=== PATIENT | female | born 1970 | race Caucasian/White ===

== ENCOUNTER → 2017-07-18 | Outpatient (CLI) | payer BC ==
[2017-07-18 09:55] LABS: BASOPHILS # (AUTO) 0.1 X10^3/uL (0.0-0.1); BASOPHILS % (AUTO) 1.1 % (0.2-1.0); EOSINOPHILS # (AUTO) 0.1 x10^3/uL (0.0-0.2); EOSINOPHILS % (AUTO) 1.2 % (0.9-2.9); HEMATOCRIT 36.1 % (36.0-47.0); HEMOGLOBIN 12.3 g/dL (12.0-16.0); LYMPHOCYTES # (AUTO) 1.7 X10^3/uL (1.3-2.9); LYMPHOCYTES % (AUTO) 24.4 % (21.0-51.0); MEAN CORPUSCULAR HEMOGLOBIN 26.3 pg (27.0-34.0); MEAN CORPUSCULAR HGB CONC 34.2 g/dL (33.0-35.0); MEAN PLATELET VOLUME 7.5 fL (7.4-11.0); MONOCYTES # (AUTO) 0.4 x10^3/uL (0.3-0.8); MONOCYTES % (AUTO) 5.6 % (0.0-13.0); NEUTROPHILS # (AUTO) 4.6 x10^3/uL (2.2-4.8); NEUTROPHILS % (AUTO) 67.7 % (42.0-75.0); PLATELET COUNT 299 X10^3/uL (150.0-450.0); RED BLOOD COUNT 4.69 X10^6/uL (3.5-5.4); RED CELL DISTRIBUTION WIDTH 15.1 % (11.6-16.5); WHITE BLOOD COUNT 6.8 X10^3/uL (3.6-10.0)
[2017-07-18 10:03] LABS: BILIRUBIN,URINE NEGATIVE (NEGATIVE); BLOOD/HEMOGLOBIN,URINE NEGATIVE (NEGATIVE); GLUCOSE, URINE NEGATIVE (NEGATIVE); KETONES,URINE 1+ (NEGATIVE); LEUKOCYTE ESTERASE ,URINE 1+ (NEGATIVE); NITRITES,URINE NEGATIVE (NEGATIVE); PROTEIN,URINE 1+ (NEGATIVE); UROBILINOGEN,URINE NORMAL (NORMAL)
[2017-07-18 10:15] LABS: ALANINE AMINOTRANSFERASE 23 Units/L (12-78); ALBUMIN 3.5 g/dL (3.4-5.0); ALKALINE PHOSPHATASE 77 Units/L (46-116); ASPARTATE AMINO TRANSFERASE 19 Units/L (15-37); BLOOD UREA NITROGEN 10 mg/dL (7-18); CALCIUM 8.4 mg/dL (8.5-10.1); CARBON DIOXIDE 31.3 mmol/L (21-32); CHLORIDE 103 mmol/L (98-107); CHOL/HDL RATIO 3.1 (0.0-5.0); CHOLESTEROL 192 mg/dL (0-200); CREATININE 0.67 mg/dL (0.55-1.02); FREE T4 (FREE THYROXINE) 1.04 ng/dL (0.76-1.46); GLUCOSE 86 mg/dL (65-99); HDL CHOLESTEROL 61 mg/dL (40-60); SODIUM 139 mmol/L (136-145); TOTAL PROTEIN 7.4 g/dL (6.4-8.2); TRIGLYCERIDES 68 mg/dL (0-150); TSH (3RD GENERATION) 1.278 uIU/mL (0.358-3.74); eGFR BLACK RACES > 60 (>60); eGFR NON BLACK RACES > 60 (>60)
[2017-07-18 10:27] LABS: APPEARANCE,URINE CLEAR (CLEAR); COLOR,URINE YELLOW (YELLOW)
[2017-07-18 10:31] LABS: AMORPHOUS SEDIMENT,UR 1+ /HPF (NEGATIVE); BACTERIA,URINE 1+ /HPF (NEGATIVE); MUCUS,URINE MODERATE /HPF (NEGATIVE); RBC,URINE RARE /HPF (NEGATIVE); SQUAMOUS EPITHELIAL CELL,UR MANY /HPF (NEGATIVE)
[2017-07-18 10:42] LABS: ERYTHROCYTE SEDIMENTATION RATE 19 MM/HOUR (0-20)
--- NOTE | 2017-07-18 10:53 | US ---
History: Right upper quadrant pain for 6 months Study: Ultrasound of the abdomen Comparison: None Findings: The gallbladder is surgically absent. The common hepatic duct measures 5.1 millimeters ace meter. The liver and spleen and pancreas are normal in size and configuration without demonstration of a ma ss. There is no aortic aneurysm in there is no free fluid. The right kidney measures 11.25 x 4.65 x 5.93 centimeters in the left kidney measures 12.44 x 5.3 x 5.77 centimeters. There is normal echogen icity of renal cortex. There is no hydronephrosis. Impression: Negative status post cholecystectomy. The common hepatic duct measures 5.1 millimeters d iameter. Reported By:
[2017-07-18 12:05] LABS: RHEUMATOID FACTOR NEGATIVE (NEGATIVE)
== END ==
LOC: RAD 09:10
PROVIDERS: ATTEND Family Medicine
DX: I10 Essential (primary) hypertension (principal); Z79.899 Other long term (current) drug therapy; N95.1 Menopausal and female climacteric states; R53.83 Other fatigue; R10.11 Right upper quadrant pain
CPT/HCPCS: 36415; 76700; 80048; 80061; 80076; 81001; 82542; 82607; 82670; 82746; 84270; 84402; 84403; 84439; 84443; 85025; 85652; 86140; 86430

== ENCOUNTER 2017-07-31 10:49 | Day surgery (SDC) | payer BC ==
[2017-07-31] MEDS: D5 LR 1000 ML 1,000 ML IV ONE ×2 (11:40→11:48)
[2017-07-31] MEDS ORDERED: DIPRIVAN VIAL 20 ML ONE (11:48)
[2017-07-31] MEDS ORDERED: DIPRIVAN VIAL 10 ML ONE ×2 (12:05→12:13)
[2017-07-31 14:04] VITALS: BP 122/80
== END 2017-07-31 12:45 | disposition home or self-care (01) ==
LOC: SURG1 10:49
PROVIDERS: ATTEND Internal Medicine Gastroenterology
PROC: 0DJD8ZZ Inspection of Lower Intestinal Tract, Via Natural or Artificial Opening Endoscopic (ICD-10-PCS; principal; 2017-07-31 15:30)
PROC: 0DBK8ZX Excision of Ascending Colon, Via Natural or Artificial Opening Endoscopic, Diagnostic (ICD-10-PCS; principal; 2017-07-31 15:30)
PROC: 0DBE8ZX Excision of Large Intestine, Via Natural or Artificial Opening Endoscopic, Diagnostic (ICD-10-PCS; principal; 2017-07-31 15:30)
DX: R19.4 Change in bowel habit (principal); Z86.010 Personal history of colon polyps; R10.84 Generalized abdominal pain; K57.30 Diverticulosis of large intestine without perforation or abscess without bleeding; K63.5 Polyp of colon; K64.0 First degree hemorrhoids; K58.8 Other irritable bowel syndrome; K92.1 Melena
CPT/HCPCS: A4217; J3490; J7120